=== PATIENT | female | born 2005 ===

== ENCOUNTER 2024-09-04 05:46 | Inpatient (IN) | payer MEDICAID, OTHER, SELFPAY ==
[2024-09-03 11:27] LABS: Hematocrit 38.6 % (34.9-44.5); Hemoglobin 13.5 g/dL (12.0-15.5); Platelet Count 311 10x3/uL (150-450)
[2024-09-03 12:03] LABS: HIV (1/2) Antibody/Antigen Non-Reactive (NonReactive); HIV 1/2 INDEX 0.11 S/CO (<1.00); Hep B Surf Ag Non-Reactive S/CO (NonReactive)
[2024-09-03 12:04] LABS: Syphilis Antibody Index 0.04 S/CO (<1.00 Non-Reactive)
[2024-09-04 06:03] VITALS: BMI 35.8
[2024-09-04] MEDS ORDERED: Carboprost 250 MCG/ML AMP IM PRN (06:29)
[2024-09-04] MEDS ORDERED: Bicitra 30 ML UDCUP PO PRN (06:29)
[2024-09-04] MEDS ORDERED: hydrALAZINE 20 MG/ML VIAL SLOW IVP PRN ×2 (06:29→10:29)
[2024-09-04] MEDS ORDERED: Tranexamic Acid 1,000 MG/10 ML VIAL IVP PRN (06:29)
[2024-09-04] MEDS ORDERED: Oxytocin 30 units/NS 500 ML 500 ML IV SCH (06:29)
[2024-09-04] MEDS ORDERED: Diphenoxylate HCl/Atropine Tablet PO PRN (06:29)
[2024-09-04] MEDS ORDERED: Methylergonovine 0.2 MG/ML VIAL IM PRN (06:29)
[2024-09-04] MEDS ORDERED: Ondansetron PF 4 MG/2 ML Vial IVP PRN (06:29)
[2024-09-04] MEDS: Famotidine/PF 20 mg/2ml Vial SLOW IVP PRN (07:27)
[2024-09-04] MEDS ORDERED: Simethicone Chewable 80 MG TAB PO PRN (10:29)
[2024-09-04] MEDS ORDERED: HYDROcodone/Acetaminophen 5/325 mg Tablet PO PRN (10:29)
[2024-09-04] MEDS ORDERED: Meperidine HCl/PF 25 MG (1 mL) VIAL IM PRN (10:29)
[2024-09-04] MEDS ORDERED: Bisacodyl 10 MG SUPP PR PRN (10:29)
[2024-09-04] MEDS ORDERED: Lanolin Ointment 7 GM TUBE TOP PRN (10:29)
[2024-09-04] MEDS: Erythromycin Base 0.5% Oint 1 GM TUBE ONE (10:49)
[2024-09-04] MEDS: Ondansetron PF 4 MG/2 ML Vial ONE (10:49)
[2024-09-04] MEDS: Phenylephrine 40 MG/NS 250 ML 250 ML ONE (10:49)
[2024-09-04] MEDS: Dexamethasone 10 MG/ML VIAL ONE (10:49)
[2024-09-04] MEDS: Oxytocin 10 UNITS/ML VIAL ONE (10:50)
[2024-09-04] MEDS: Ferrous Sulfate 325 MG TAB PO SCH ×2 (10:50→21:06)
[2024-09-04] MEDS: Ondansetron PF 4 MG/2 ML Vial IVP PRN (12:07)
[2024-09-04] MEDS: Ketorolac Tromethamine 30 MG (1 mL) VIAL IVP SCH (13:30)
[2024-09-04] MEDS: diphenhydrAMINE 25 MG CAP PO PRN (16:51)
[2024-09-05 05:42] LABS: Hematocrit 33.0 % (34.9-44.5); Hemoglobin 11.4 g/dL (12.0-15.5); Mean Corpuscular Hemoglobin 30.0 pg (27.0-33.0); Mean Corpuscular Volume 86.8 fL (81.6-98.3); Platelet Count 270 10x3/uL (150-450); Red Blood Cell (RBC) Count 3.80 10x6/uL (3.90-5.03); White Blood Cell (WBC) Count 12.76 10x3/uL (3.5-10.5)
[2024-09-05] MEDS: Ibuprofen 800 MG TAB PO SCH (17:02)
[2024-09-05] MEDS: HYDROcodone/Acetaminophen 5/325 mg Tablet PO PRN (23:10)
[2024-09-06] MEDS: Boostrix 0.5 ML (Tdap) VIAL (>/=7 yrs of age) IM ONE (16:14)
[2024-09-07 12:48] VITALS: BP 111/68; TEMP 97.8
== END 2024-09-07 16:25 | disposition home or self-care (01) | DRG 788 ==
LOC: CSHLD 05:46 → CSHPP 10:18
PROVIDERS: ADMIT Family Medicine; ATTEND Family Medicine
PROC: 10D00Z1 Extraction of Products of Conception, Low, Open Approach (ICD-10-PCS; principal; 2024-09-04)
DX: O36.5930 Maternal care for other known or suspected poor fetal growth, third trimester, not applicable or unspecified (principal); O34.211 Maternal care for low transverse scar from previous cesarean delivery; Z3A.39 39 weeks gestation of pregnancy; Z37.0 Single live birth
CPT/HCPCS: 36415; 51702; 85014; 85018; 85027; 85049; 86780; 86850; 86900; 86901; 87340; 87389; C1889; J1100; J1885; J2274; J2405; J2590; J3490